=== PATIENT | male | born 1965 | race Caucasian/White ===

== ENCOUNTER 2018-03-06 19:14 | Inpatient (IN) | payer OTHER ==
[~2018-03-06] VITALS: Ht 185.4 cm; Wt 140.4 kg
[2018-03-06 21:15] VITALS: BP 136/81
[2018-03-06] MEDS ORDERED: ALLOPURINOL 30300 M1 PO (22:49)
[2018-03-06] MEDS ORDERED: ASPIR 8181 MG PO (22:50)
[2018-03-06] MEDS ORDERED: ATORVASTATIN CA40 MG PO (22:51)
[2018-03-06] MEDS ORDERED: TUSSIONEX PENN115 ML PO (22:52)
[2018-03-06] MEDS ORDERED: TESSALON PERLE100 MG PO (22:52)
[2018-03-06] MEDS ORDERED: HYDROCHLOROTH12.5 M1 PO (22:53)
[2018-03-06] MEDS ORDERED: PLAVIX 75 MG TA75 M1 PO (22:53)
[2018-03-06] MEDS ORDERED: COZAAR 25 MG TA25 M2 PO (22:54)
[2018-03-06] MEDS ORDERED: GLUCOPHAGE XR500 MG PO (22:55)
[2018-03-06] MEDS ORDERED: PERCOCET 10-321 EACH PO (22:55)
[2018-03-06] MEDS ORDERED: ALFUZOSIN HCL10 MG PO (22:56)
[2018-03-06] MEDS ORDERED: GLYBURIDE 2.52.5 MG PO (22:56)
[2018-03-06] MEDS ORDERED: DEMADEX20 MG PO (22:57)
[2018-03-06] MEDS ORDERED: FISH OIL 1,001000 M2 PO (22:57)
[2018-03-07 00:37] VITALS: BP 136/94
[2018-03-07] MEDS ORDERED: HYDROCHLOROTH12.5 M1 PO (01:40)
[2018-03-07 04:42] LABS: HEMATOCRIT 38.7 % (42.0-52.0); HEMOGLOBIN 12.8 gm/dL (14.0-18.0); MCH 28.5 pg (26.0-34.0); MCV 86.4 fL (80.0-100.0); RBC 4.48 mil/uL (4.50-6.00); RDW 15.2 % (10.5-14.5); WBC 8.1 thou/uL (4.0-11.0)
[2018-03-07 04:44] LABS: ALBUMIN 3.1 g/dL (3.4-5.0); CALCIUM 9.2 mg/dL (8.5-10.1); CREATININE 1.3 mg/dL (0.7-1.3); POTASSIUM 3.7 mmol/L (3.5-5.1); TOTAL BILIRUBIN 0.4 mg/dL (<0.1-1.0); TOTAL PROTEIN 6.6 g/dL (6.4-8.2)
[2018-03-07 06:30] VITALS: BP 135/89
[2018-03-07 07:42] VITALS: BP 131/91
--- NOTE | 2018-03-07 11:16 | H ---
[facility] [place] [address] HISTORY AND PHYSICAL Name: LINUS RICE Room #: 204-P ADM IN M.R.#: [id number] Admission: 03/06/18 Attend Phys: Kevin Marroquin MD Discharge: Date of : 65 Report #: [id number] THIS REPORT FOR: //name// CC: Kevin Reid DATE OF SERVICE: 03/06/2018 ATTENDING PHYSICIAN: Dr. Marroquin. PRIMARY CARE PHYSICIAN: Dr. Rupert Reid. CHIEF COMPLAINT: Shortness of breath. HISTORY OF PRESENT ILLNESS: The patient is a 52-year-old obese male with a history of dyspnea. He states he has been having increasing shortness of breath for over a month now. Initially, he had a nonproductive cough intermittently and was treated with a Z-SARI. He had been feeling weak and run down and it was felt that he likely had a viral illness at that time. He has been in the ER multiple times at [facility] over the course of the last month because of persistent symptoms. 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 He does have a cough, which is mostly nonproductive, but worse whenever he lies down, so he has been having difficulty sleeping. He was recently diagnosed with sleep apnea and started on a CPAP machine, but he continues to have persistent dyspnea. At one point when he was seen at the ER at [place], he had a CT angio of the chest, which was done that did not show any PE. At that time, on the , he was given doxycycline and prednisone and a prescription for an inhaler, which he did not fill. He went back to [facility] on the evening of the with fevers up to 101. He was tachycardic and had a slightly elevated lactate level, so he was admitted there and started on Rocephin and Zithromax. He reported there that he had a cardiac stent placed last summer at [facility] after complaints of the similar dyspnea. He apparently had a 90% blockage, he says, in "main artery." Prior to that catheterization last summer, he had a normal stress test and echocardiogram and when he was unable to perform pulmonary function testing because of this dyspnea, he was sent back to Cardiology for a catheterization. He denies any associated chest pain. He denies any underlying lung disease. He does not have a nebulizer at home. Post-cath, he has had a followup with Dr. Yun with Cardiology. He had a stress test again 3-4 months ago that was negative. He was transferred from [place] due to concern for possible cardiac disease, causing his dyspnea. He apparently had an echocardiogram done there, which results are not available. He does report some recent lower extremity edema, but he has not been taking his torsemide on a regular basis. He denies any previous echos showing any congestive heart failure. He is currently resting comfortably, in no acute distress. [address] [address] HISTORY AND PHYSICAL Name: LINUS RICE Room #: 204-P [facility] IN M.R.#: [id number] Admission: 03/06/18 Attend Phys: Kevin Marroquin MD Discharge: Date of : 65 Report #: [id number] PAST MEDICAL HISTORY: Hypertension, renal cancer, nephrolithiasis, gout, hyperlipidemia, hypertension, diabetes, PE, obstructive sleep apnea, GERD, morbid obesity, coronary artery disease, peripheral neuropathy, depression. PAST SURGICAL HISTORY: Coronary stent x 1, hernia repair, partial nephrectomy. ALLERGIES: No known drug allergies. HOME MEDICATIONS: Alfuzosin 10 mg p.o. daily, Plavix 75 mg p.o. daily, atorvastatin 40 mg p.o. at bedtime, fish oil 1000 mg p.o. b.i.d., losartan 50 mg p.o. daily, aspirin 81 mg p.o. daily, Percocet 10/325 one tab p.o. t.i.d. p.r.n., torsemide 40 mg p.o. daily but he has not been taking this regularly, hydrochlorothiazide 12.5 mg daily, benzonatate 100 mg q.8 hours p.r.n., Tussionex 5 mg b.i.d. p.r.n., metformin 1000 mg p.o. b.i.d., allopurinol 300 mg p.o. daily. SOCIAL HISTORY: The patient is a never smoker, but he does chew tobacco daily. He denies any alcohol use other than an occasional beer. Denies any drug use. 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 FAMILY HISTORY: His mother had brain and lung cancer as well as emphysema. His father had heart disease, diabetes and some sort of heart valve problem. REVIEW OF SYSTEMS: The patient does have a known hydrocele which is due to be repaired by Dr. Rodarte with Urology. He has been placed on Keflex and Alfuzosin for treatment of the hydrocele recently. All other review of systems was reviewed with the patient, otherwise negative unless stated in the HPI. PHYSICAL EXAMINATION: GENERAL: The patient is an alert, obese male, in no acute distress. VITAL SIGNS: Temperature is 36.7, heart rate 96, respirations 18, blood pressure 136/81, oxygen 97% on room air. HEENT: PERRLA. Sclerae nonicteric. Oral mucosa is pink and moist. NECK: Supple, no JVD noted. CARDIAC: Normal S1, S2. No murmurs, rubs or gallops. RESPIRATORY: Breath sounds are clear bilaterally. He is diminished in both bases. Breathing is nonlabored. ABDOMEN: Obese, soft, nontender, nondistended with positive bowel sounds. VASCULAR: 1+ bilateral lower extremity edema, pedal pulses are 2+. No calf tenderness. NEUROLOGIC: The patient is alert and oriented x 3. Speech is clear. He is moving all extremities equally. No focal weakness noted. No facial asymmetry. Gait is steady without ataxia. SKIN: Intact. No rashes or lesions. [address] [address] HISTORY AND PHYSICAL Name: LINUS RICE Room #: 204-P ADM IN M.R.#: [id number] Admission: 03/06/18 Attend Phys: Kevin Marroquin MD Discharge: Date of : 65 Report #: [id number] LABORATORY DATA AND DIAGNOSTICS: Blood work done at [facility] on the evening of 03/04/2018 showed WBC of 8.7, hemoglobin 12.7, platelets 209. Sodium 140, potassium is 3.6, BUN 12, creatinine 1.3, glucose 225. LFTs within normal limits. BNP 25. Influenza A and B are negative. Chest x-ray was negative. ASSESSMENT AND PLAN: 1. Persistent dyspnea. Etiology for this is not clear. He has had recent cardiac stent as well as stress test and echocardiogram. The echo results done at [place] yesterday are not available. We will request those records. His troponin and EKG are negative for any ischemic changes. He apparently was unable to perform pulmonary function test and denies any history of chronic obstructive pulmonary disease. We will consult Cardiology for any further testing with a cardiac catheterization. Continue antibiotics for recent possible bacterial bronchitis. Continue breathing treatments. The patient states that his dyspnea is significantly worse when he lies flat. He may be having some silent reflux and if this is felt to be noncardiac, we may need to have GI evaluate with an EGD. We will add PPI. 2. History of coronary artery disease with recent stent. He is denying any chest pain and troponin is negative. We will request recent records from [facility] and consult Cardiology. Continue with Plavix. 3. Hypertension. Blood pressure is stable, continue home meds and monitor. 4. Diabetes type 2. The patient reports recent hemoglobin A1c of 7.1. He is on metformin, which we will hold for possible catheterization. Continue glyburide and add sliding scale insulin and follow Accu-Cheks. 5. History of pulmonary embolism. The patient is currently off anticoagulation for pulmonary embolism. Apparently recent CT angio of the chest this month was negative. 6. Obstructive sleep apnea. Continue with CPAP at bedtime. 7. Recent bronchitis. Continue with IV antibiotics for now. We will try to obtain a sputum culture and viral respiratory panel. Influenza was negative. Continue with Tussionex and Mucinex. 8. Obesity. 9. Deep venous thrombosis prophylaxis. Start Lovenox. We will continue to follow the patient closely throughout the hospitalization and make changes based on clinical status. <ELECTRONICALLY SIGNED> By: ROBERTO Landrum 03/07/18 1116 0705 0811 ROBERTO Landrum /nt
[2018-03-07 12:12] VITALS: BP 142/92
[2018-03-07 16:04] VITALS: BP 160/96
--- NOTE | 2018-03-07 17:03 | 2DMMODE ---
[facility] [address] [place] [address] 2 D/M-MODE ECHOCARDIOGRAM Name: LINUS RICE Room #: 204-P ADM IN M.R.#: [id number] Admission: 03/06/18 Attend Phys: Kevin Marroquin, Discharge: Date of : 65 Date of Service: 03/07/18 1703 Report #: [id number] THIS REPORT FOR: //name// APPROVED REPORT Study performed: 03/07/2018 13:41:42 EXAM: Limited 2D, Doppler, and color-flow Echocardiogram with contrast Patient Location: Echo lab Room #: 204 Status: routine BSA: 2.62 HR: 93 bpm BP: 142/92 mmHg Rhythm: NSR Indications Limited echo for shortness of breath. Hx: CAD, stent, HTN, HLP, DM, morbid obesity. (Complete echo done at different location recently) Echo Enhancing Agent Indication: Endocardial border delineation Agent(s) / Amount(s) Used: Optison 6 cc 2D Dimensions RVDd: 36.41 mm IVSd: 12.20 (7-11mm) LVDd: 42.87 mm PWd: 12.42 (7-11mm) Ascending Ao: 37.05 (22-36mm) LVDs: 32.05 (25-40mm) Aortic Root: 41.06 mm Volumes Left Atrial Volume (Systole) Single Plane 4CH: 30.29 mL Single Plane 2CH: 38.98 mL LA ESV Index: 14.00 mL/m2 Aortic Valve AoV Peak Delfin.: 1.18 m/s AO Peak Gr.: 5.57 mmHg LVOT Max P.69 mmHg LVOT Max V: 0.96 m/s Mitral Valve E/A Ratio: 0.9 MV Decel. Time: 137.41 ms [facility] [place] [address] 2 D/M-MODE ECHOCARDIOGRAM Name: LINUS RICE Room #: 204-P [facility] IN M.R.#: [id number] Admission: 03/06/18 Attend Phys: Kevin Marroquin, Discharge: Date of : 65 Date of Service: 03/07/18 1703 Report #: [id number] E Max Delfin.: 0.46 m/s MV A Delfin.: 0.51 m/s MV PHT: 39.85 ms Tricuspid Valve TR Peak Delfin.: 2.13 m/s TR Peak Gr.: 18.10 mmHg Left Ventricle The left ventricle is normal size. Mild concentric left ventricular hypertrophy. Left ventricular systolic function is normal. LVEF is 50-55%. Mild diastolic dysfunction is present (impaired relaxation pattern). Right Ventricle The right ventricle is normal size. The right ventricular systolic function is normal. Atria The left atrium size is normal. The right atrium size is normal. Aortic Valve The aortic valve is normal in structure. No aortic regurgitation is present. There is no aortic valvular stenosis. Mitral Valve The mitral valve is normal in structure. Trace mitral regurgitation. No evidence of mitral valve stenosis. Tricuspid Valve The tricuspid valve is normal in structure. Trace tricuspid regurgitation. Estimated PAP is 25mmhg Great Vessels Aortic root is mildly dilated at 4.1cm. The ascending aorta is normal in size. IVC is not well visualized. Pericardium There is no pericardial effusion. <Conclusion> [facility] [address] [place] [address] 2 D/M-MODE ECHOCARDIOGRAM Name: LINUS RICE Room #: 204-P ADM IN M.R.#: [id number] Admission: 03/06/18 Attend Phys: Kevin Marroquin, Discharge: Date of : 65 Date of Service: 03/07/181702 Report #: [id number] The left ventricle is normal size. LVEF is 50-55%. Mild diastolic dysfunction is present (impaired relaxation pattern). The left atrium size is normal. The aortic valve is normal in structure. There is no aortic valvular stenosis. Trace mitral regurgitation. Trace tricuspid regurgitation. Estimated PAP is 25mmhg Aortic root is mildly dilated at 4.1cm. There is no pericardial effusion. <ELECTRONICALLY SIGNED> By: Jose Yun MD, [facility] 03/07/181702 02 02 Jose Yun MD, FACC /INF
[2018-03-07 17:12] LABS: GLYCOHEMOGLOBIN (HGB A1C) 7.4 % (4.8-5.6)
[2018-03-07 19:24] VITALS: BP 146/82
[2018-03-08 04:49] VITALS: BP 141/74
[2018-03-08] MEDS ORDERED: CARVEDILOL3.125 MG PO (05:06)
[2018-03-08] MEDS ORDERED: LASIX 20 MG TAB20 MG PO (05:08)
[2018-03-08] MEDS ORDERED: NEURONTIN 300300 M1 PO (05:09)
[2018-03-08] MEDS ORDERED: AMARYL2 MG PO (05:11)
[2018-03-08] MEDS ORDERED: XALATAN2.5 ML OPHTHALMIC (05:12)
[2018-03-08] MEDS ORDERED: NIACIN500 MG PO (05:14)
[2018-03-08] MEDS ORDERED: OMEPRAZOLE 20 M20 M1 PO (05:19)
[2018-03-08] MEDS ORDERED: [UNRECOGNIZED DRUG - OTHER] (05:20)
[2018-03-08] MEDS ORDERED: PRADAXA150 MG PO (05:21)
[2018-03-08] MEDS ORDERED: ALTACE10 MG PO (05:22)
[2018-03-08] MEDS ORDERED: ZOCOR20 MG PO (05:22)
[2018-03-08] MEDS ORDERED: TOPAMAX 100 MG100 MG PO (05:24)
[2018-03-08 08:00] VITALS: BP 130/88
[2018-03-08 08:20] VITALS: BP 130/88
--- NOTE | 2018-03-08 08:34 | EKG ---
[address] [address] ELECTROCARDIOGRAM REPORT Name: LINUS RICE Room #: 204-P ADM IN M.R.#: [id number] Admission: 03/06/18 Attend Phys: Kevin Marroquin MD Discharge: Date of : 65 Report #: [id number] THIS REPORT FOR: //name// [facility] Test Date: 2018-03-08 Test Time: 06:54:33 Pat Name: LINUS RICE Department: Room: 204 P Gender: M Light Bulb Tester: KENJI : 1965 Requested By: Sallie Peterson Order Number: [id number] MD: Domingo Gibson Measurements Intervals [place] Rate: 97 P: 44 UT: 167 QRS: 51 QRSD: 101 T: 20 QT: 357 QTc: 454 Interpretive Statements Sinus rhythm Normal tracing No previous ECG available for comparison Electronically Signed On 03-08-2018 8:34:49 PROCESS DESIGN CHEMICAL ENGINEER by Domingo Gibson [email or web address] <ELECTRONICALLY SIGNED> By: Domingo Gibson MD, [facility] 03/08/18 0834 0654 0654 Domingo Gibson MD, FACC /EPI
[2018-03-08 11:45] VITALS: BP 148/87
[2018-03-08 11:47] VITALS: BP 148/87
[2018-03-08] MEDS ORDERED: CLOPIDOGREL75 MG PO (12:56)
[2018-03-08] MEDS ORDERED: ASPIR 8181 MG PO (12:56)
[2018-03-08] MEDS ORDERED: COZAAR 25 MG TA25 MG PO (12:58)
[2018-03-08] MEDS ORDERED: HYDROCHLOROTH12.5 M1 PO (13:01)
[2018-03-08] MEDS ORDERED: BENZONATATE100 MG PO (13:01)
[2018-03-08] MEDS ORDERED: DEMADEX20 MG PO (13:02)
[2018-03-08 13:58] VITALS: BP 148/87
[2018-03-10 06:07] LABS: ADENOVIRUS Negative (Negative); INFLUENZA A Negative (Negative); INFLUENZA B Negative (Negative); METAPNEUMOVIRUS Negative (Negative); PARAINFLUENZA 1 Negative (Negative); PARAINFLUENZA 2 Negative (Negative); PARAINFLUENZA 3 Negative (Negative); RHINOVIRUS Negative (Negative); RSV A Negative (Negative); RSV B Negative (Negative)
--- NOTE | 2018-03-13 07:59 | HC ---
[facility] [place] [address] [address] CONSULTATION Name: LINUS RICE Room #: 204-P [facility] IN M.R.#: [id number] Admission: 03/06/18 Attend Phys: Kevin Marroquin MD Discharge: 03/08/18 Date of : 65 Report #: [id number] THIS REPORT FOR: //name// CC: Kevin Reid HISTORY OF PRESENT ILLNESS: The patient is a 52-year-old male who is known to me. Has history of stable coronary artery disease, was admitted with possible sepsis syndrome on Tuesday at [facility]. Fisher to be bronchitis related. His BNP was not elevated. He had stopped his Lasix for the last week because of a hydrocele and had difficulty urinating because of the hydrocele, so I elected to stop his diuretic. He had coronary intervention in 07/2017 to a ramus branch lesion that was stented and then a 70% circumflex OM that had a negative FFR, 30% LAD. Had a negative stress echo in my office in November, 3 months ago. He has had no chest pain or anginal complaints. He has hypertriglyceridemia and we have been working on getting that down. MEDICATIONS: He has been on allopurinol, baby aspirin, atorvastatin 40, Plavix, losartan/HCTZ 100/25, metformin 1000 b.i.d., torsemide 20 and Vascepa 2 grams b.i.d. PAST MEDICAL HISTORY: Positive for coronary artery disease with stents, diabetes, hypertension, hypercholesterolemia, sleep apnea, hydrocele, DJD. FAMILY HISTORY: Positive coronary artery disease, I also see his father with documented CAD. SOCIAL HISTORY: Never-tobacco or alcohol user. He does work. He is independent. Six cups of coffee a day. ALLERGIES: No known drug allergies. PHYSICAL EXAMINATION: VITAL SIGNS: Blood pressure 130/90, pulse 80s. HEENT: Eyes reveal xanthelasmas. Pharynx is clear. NECK: Shows preserved upstrokes without JVD or bruits. LUNGS: Clear. A few crackles are noted in the right base. CARDIAC: Regular rate and rhythm, S1, S2 distant. ABDOMEN: Obese, nontender. EXTREMITIES: Reveal 1-2+ edema. Distal pulses diminished, but intact. NEUROLOGIC: Nonfocal. SKIN: Warm and dry. There are mild venous stasis changes. ASSESSMENT: 1. Resolving sepsis syndrome/bronchitis. 2. Mild volume overload, suspect component of diastolic dysfunction and noncompliance with diuretic. [facility] [address] [place] [address] CONSULTATION Name: LINUS RICE Room #: 204-P DIS IN M.R.#: [id number] Admission: 03/06/18 Attend Phys: Kevin Marroquin MD Discharge: 03/08/18 Date of : 65 Report #: [id number] 3. Coronary artery disease, stable. 4. Diabetes. 5. Hypertension. 6. Hypertriglyceridemia. RECOMMENDATIONS AND PLAN: We will utilize diuretic, repeat a chest x-ray. Continue with antibiotics, although it is not clear to me the source of this potential sepsis infection. He is hemodynamically stable and certainly not presenting as septic syndrome at this point. I believe his cardiac status to be stable. I do not recommend stress testing or intervention at this time. I will obtain echo Doppler and repeat the EKG. We will follow with you. Thank you for asking me to assist in the care of this patient. <ELECTRONICALLY SIGNED> By: Jose Yun MD, FACC 03/13/18 0759 0951 1046 Jose Yun MD, FACC /nt
== END 2018-03-08 15:24 | disposition home or self-care (01) | DRG 871 ==
LOC: 2N 19:14 → ENTRNSPT 03-08 15:01 → EDTRNSPTSTS 03-08 15:05 → 2N 03-08 15:24
PROVIDERS: Nurse Practitioner Acute Care; ADMIT Internal Medicine
DX: A41.9 Sepsis, unspecified organism (principal); I50.31 Acute diastolic (congestive) heart failure; Z68.41 Body mass index [BMI] 40.0-44.9, adult; I25.10 Atherosclerotic heart disease of native coronary artery without angina pectoris; E78.1 Pure hyperglyceridemia; K21.9 Gastro-esophageal reflux disease without esophagitis; M19.90 Unspecified osteoarthritis, unspecified site; E78.5 Hyperlipidemia, unspecified; J40 Bronchitis, not specified as acute or chronic; M10.9 Gout, unspecified; I10 Essential (primary) hypertension; I08.1 Rheumatic disorders of both mitral and tricuspid valves; F17.220 Nicotine dependence, chewing tobacco, uncomplicated; E66.9 Obesity, unspecified; G47.33 Obstructive sleep apnea (adult) (pediatric); E11.9 Type 2 diabetes mellitus without complications; Z95.5 Presence of coronary angioplasty implant and graft; Z79.82 Long term (current) use of aspirin; Z82.49 Family history of ischemic heart disease and other diseases of the circulatory system; Z79.84 Long term (current) use of oral hypoglycemic drugs; Z86.711 Personal history of pulmonary embolism; Z87.442 Personal history of urinary calculi
CPT/HCPCS: 10081

== ENCOUNTER 2018-05-21 16:24 | Inpatient (IN) | payer OTHER ==
[~2018-05-21] VITALS: Ht 185.4 cm; Wt 144.2 kg
[~2018-05-21 16:24] MED LIST: ALFUZOSIN HCL10 MG PO; ALLOPURINOL 30300 M1 PO; ALTACE10 MG PO; AMARYL2 MG PO; ASPIR 8181 MG PO; ATORVASTATIN CA40 MG PO; BENZONATATE100 MG PO; CARVEDILOL3.125 MG PO; CLOPIDOGREL75 MG PO; COZAAR 25 MG TA25 M2 PO; COZAAR 25 MG TA25 MG PO; DEMADEX20 MG PO; FISH OIL 1,001000 M2 PO; GLUCOPHAGE XR500 MG PO; GLYBURIDE 2.52.5 MG PO; HYDROCHLOROTH12.5 M1 PO; LASIX 20 MG TAB20 MG PO; NEURONTIN 300300 M1 PO; NIACIN500 MG PO; OMEPRAZOLE 20 M20 M1 PO; PERCOCET 10-321 EACH PO; PLAVIX 75 MG TA75 M1 PO; PRADAXA150 MG PO; TESSALON PERLE100 MG PO; TOPAMAX 100 MG100 MG PO; TUSSIONEX PENN115 ML PO; XALATAN2.5 ML OPHTHALMIC; ZOCOR20 MG PO; [UNRECOGNIZED DRUG - OTHER]
[2018-05-21 16:30] VITALS: BP 119/85
[2018-05-21 16:54] LABS: URINE BILIRUBIN NEGATIVE (Negative); URINE BLOOD 3+ (Negative); URINE CLARITY CLEAR; URINE COLOR YELLOW; URINE GLUCOSE-RANDOM* NEGATIVE (Negative); URINE KETONES NEGATIVE (Negative); URINE LEUKOCYTES-REFLEX TRACE (Negative); URINE NITRITE-REFLEX NEGATIVE (Negative); URINE PROTEIN (DIPSTICK) 1+ (Negative); URINE UROBILINOGEN 0.2 E.U./dl (0.2-1.0)
[2018-05-21 16:58] LABS: SQUAMOUS 4-10 Moderate /LPF (0-3)
[2018-05-21 16:59] LABS: CASTS None Seen /LPF (None Seen); MUCUS 0-3 Light strn/LPF (None Seen); URINE WBC-REFLEX 6-15 Few /HPF (0-5)
[2018-05-21 17:00] LABS: BACTERIA-REFLEX None Seen /HPF (None Seen); CRYSTALS None Seen /LPF (None Seen)
--- NOTE | 2018-05-21 17:36 | NUR ---
LAB AT BEDSIDE TO COLLECT SPECIMENS; PT REFUSED UNTIL PROVIDER FINISHES AT PTS BEDSIDE; THREE DIMENSIONAL MAP MODELER WILL COLLECT OTHER SPECIMENS AND RETURN SOON SHE IS ABLE;
--- NOTE | 2018-05-21 17:43 | NUR ---
LAB IN ROUTE TO COLLECT SPECIMENS PER ORDERS
[2018-05-21 18:22] LABS: ABSOLUTE NEUTROPHILS 9.9 thou/uL (1.4-8.2); BASOPHILS 0.9 % (0.0-2.0); HEMATOCRIT 37.3 % (42.0-52.0); HEMOGLOBIN 12.5 gm/dL (14.0-18.0); LYMPHOCYTES 18.4 % (24.0-44.0); MCHC 33.5 g/dL (28.0-37.0); MCV 83.6 fL (80.0-100.0); MONOCYTES 8.7 % (1.0-8.0); PLATELET COUNT 276 thou/uL (150-400); RBC 4.47 mil/uL (4.50-6.00); RDW 14.7 % (10.5-14.5); WBC 13.9 thou/uL (4.0-11.0)
[2018-05-21 18:33] LABS: CALCIUM 8.7 mg/dL (8.5-10.1); POTASSIUM 3.5 mmol/L (3.5-5.1)
[2018-05-21 18:39] LABS: ALBUMIN 3.3 g/dL (3.4-5.0); TOTAL BILIRUBIN 0.4 mg/dL (<0.1-1.0); TOTAL PROTEIN 6.5 g/dL (6.4-8.2)
[2018-05-21 20:18] VITALS: BP 136/72
[2018-05-21 20:35] VITALS: BP 155/92
[2018-05-21] MEDS ORDERED: VASCEPA1 GM PO (21:12)
[2018-05-21] MEDS ORDERED: KEFLEX500 M1 PO (22:29)
[2018-05-21] MEDS ORDERED: ALFUZOSIN HCL10 MG PO (22:35)
--- NOTE | 2018-05-21 23:00 | NUR ---
Patient states he uses home CPAP without oxygen bled in, refused nasal annula offered or CPAP ordered.
[2018-05-21 23:21] VITALS: BP 141/86
--- NOTE | 2018-05-22 00:05 | EKG ---
[address] [place] [address] ELECTROCARDIOGRAM REPORT Name: LINUS RICE Room #: 364-P ADM IN M.R.#: [id number] ������������������ Admission: 05/21/18 ������������������ Attend Phys: Daren Youssef MD Discharge: ������������������ Date of : 65 Report #: [id number] ����������������������������������������������������������������� [id number] THIS REPORT FOR: //name// [facility] ED Test Date: 2018-05-21 Test Time: 18:00:56 Pat Name: LINUS RICE Department: Room: 364 Gender: M Choreography Director: : 1965 Requested By: Ana Vargas Order Number: [id number] MD: Darío Munson Measurements Intervals [place] Rate: 105 P: 39 IN: 168 QRS: 29 QRSD: 103 T: 29 QT: 352 QTc: 466 Interpretive Statements Sinus tachycardia baseline wander poor R wave progression Compared to ECG 03/08/2018 06:54:33 no significant changes Electronically Signed On 05-22-2018 0:04:55 CDT by Darío Munson [email or web address] ��������������������������������������������� <ELECTRONICALLY SIGNED> ���������������������������������������� By: Darío Munson MD ��������������������������������������������� 05/22/18 0004 [facility] Darío Munson MD /EPI
--- NOTE | 2018-05-22 02:28 | NUR ---
Admission history and assessments completed. Careplan initiated. IVfluids and IV antibiotics started.
[2018-05-22 05:08] VITALS: BP 129/85
[2018-05-22 05:33] LABS: HEMATOCRIT 37.1 % (42.0-52.0); HEMOGLOBIN 12.1 gm/dL (14.0-18.0); MCH 27.6 pg (26.0-34.0); MCHC 32.7 g/dL (28.0-37.0); MCV 84.5 fL (80.0-100.0); RBC 4.39 mil/uL (4.50-6.00); RDW 14.5 % (10.5-14.5); WBC 11.4 thou/uL (4.0-11.0)
[2018-05-22 05:44] LABS: CALCIUM 7.9 mg/dL (8.5-10.1); CREATININE 1.2 mg/dL (0.7-1.3); POTASSIUM 3.8 mmol/L (3.5-5.1)
[2018-05-22 07:55] VITALS: BP 149/95
--- NOTE | 2018-05-22 14:41 | NUR ---
PT IS ALERT AND ORIENTED X4. UP IN THE ROOM AD OBDULIA. LUNGS. PT HERE FOR TEMP AND UTI. NO TEMPERATURE THIS AM. OR CHILLS. LUNGS ARE CLEAR TO DIMINISHED. ON ROOM AIR. PLAN OF CARE DISCUSSED WITH PT . PT RECIEVING ANTIBIOTICS FOR INFECTION. EATING A CARB CONTROL DIET. REFUSES BLOOD SUGARDS. AND APPEARS NON COMPLIANT WITH DIABETES. WILL CONTINUE TO ASSESS AND MONITOR PER NURSING. VOIDS PER URINAL. CLEAR YELLOW
[2018-05-22 16:52] VITALS: BP 151/91
[2018-05-22 20:50] VITALS: BP 180/100
--- NOTE | 2018-05-22 21:36 | NUR ---
REFUSES EVENING BLOOD GLUCOSE CHECK. HOWEVER, HE IS QUITE CONCERNED WITH HIS BLOOD PRESSURE TONIGHT AFTER EATING A LARGE PORTION OF FASY FOOD ( FIVE GUYS).
[2018-05-22 23:56] VITALS: BP 152/93
[2018-05-23 00:09] LABS: GLYCOHEMOGLOBIN (HGB A1C) 7.2 % (4.8-5.6)
--- NOTE | 2018-05-23 00:25 | NUR ---
COMPLAINING OF ALLERGY LIKE SYMPTOMS, WHICH INCLUDES DRY COUGH AND HEADACHE. RECIEVED ORDER FOR CATALINO PAGE. FOR COUGH AND ALLERGY SYMPTOMS.
--- NOTE | 2018-05-23 02:19 | NUR ---
AWAKE TONIGHT, VERY TLAKATIVE. COMPLAINS OF COUGHING GAVE THE ORDERED DIPHENHRYDRAMINE. REFUSES TO HAVE BLOOD GLUCOSE CHECKED TONIGHT. HE DOES NOT HAVE HIS HOME CPAP WITH HIM, AND WOULD PERFER TO NOT WEAR OXYGEN TONIGHT A SUBSTITUTE. CAREPLAN REVIEWED.
[2018-05-23 05:00] VITALS: BP 144/90
[2018-05-23 07:46] VITALS: BP 144/95
--- NOTE | 2018-05-23 08:44 | NUR ---
assessment: CM REVIEWED CHART AND MET WITH PATIENT AT THE BEDSIDE. PT IS ALERT AND ORIENTED X4. PT WAS ADMITTED FOR FEVER/UTI. PT HAD RECENTLY ALSO HAD A CYST REMOVED FROM [facility] 04/07. PT REPORTS HE LIVES IN A HOUSE WITH HIS AND HIS DAUGHTER. PT REPORTS HE IS FULLY INDEPENDENT WITH ADLS AND AMBULATION. PT REPORTS HE HAD HH YEARS AGO BUT STATES HE IS NOT IN SERVICES CURRENTLY. PT REPORTS HAVING A CPAP AT HOME. CM DISCUSSED ROLE. PT DOES NOT ANTICIPATE HAVING ANY NEEDS FROM CM AND IS HOPEFUL HE WILL BE ABLE TO GO HOME TODAY.
[2018-05-23] MEDS ORDERED: AUGMENTIN 875-1 EACH PO (09:22)
[2018-05-23 09:30] VITALS: BP 144/95
--- NOTE | 2018-05-23 13:32 | NUR ---
PT ALERT AND ORIENTED TIMES FOUR. VSS, 985%RA, SR ON TELE. IVF INFUSING PER ORDER. PT DENIES PAIN/SOA. PT TOLERATES MEDS AND MEALS. PT UP AB IB WITH STEADY GAIT. PT PROGRESSING TOWRADS POC GOALS.
== END 2018-05-23 11:47 | disposition home or self-care (01) | DRG 690 ==
LOC: ER 16:24 → 3W 19:34 → EROBS 19:34 → 3W 20:20 → ENTRNSPT 05-23 11:28 → EDTRNSPTSTS 05-23 11:31 → 3W 05-23 11:47
PROVIDERS: Nurse Practitioner Family; Physician Assistant; ADMIT Hospitalist
DX: N39.0 Urinary tract infection, site not specified (principal); I50.30 Unspecified diastolic (congestive) heart failure; Z68.41 Body mass index [BMI] 40.0-44.9, adult; E11.9 Type 2 diabetes mellitus without complications; M10.9 Gout, unspecified; E78.5 Hyperlipidemia, unspecified; G47.33 Obstructive sleep apnea (adult) (pediatric); K21.9 Gastro-esophageal reflux disease without esophagitis; I11.0 Hypertensive heart disease with heart failure; I25.10 Atherosclerotic heart disease of native coronary artery without angina pectoris; E66.9 Obesity, unspecified; Z87.442 Personal history of urinary calculi; Z90.5 Acquired absence of kidney; Z86.711 Personal history of pulmonary embolism; Z88.2 Allergy status to sulfonamides; Z95.5 Presence of coronary angioplasty implant and graft; Z85.528 Personal history of other malignant neoplasm of kidney; Z79.899 Other long term (current) drug therapy
CPT/HCPCS: 10879

== ENCOUNTER → 2019-09-07 | Outpatient (CLI) | payer BC, OTHER ==
[~2019-09-07] MED LIST changes: +AUGMENTIN 875-1 EACH PO; +KEFLEX500 M1 PO; +VASCEPA1 GM PO
== END ==
LOC: SJCVCIMAG 08:24
PROVIDERS: ATTEND Internal Medicine Cardiovascular Disease
DX: Z01.810 Encounter for preprocedural cardiovascular examination (principal); I49.3 Ventricular premature depolarization; I25.10 Atherosclerotic heart disease of native coronary artery without angina pectoris; I10 Essential (primary) hypertension; E78.5 Hyperlipidemia, unspecified; E11.9 Type 2 diabetes mellitus without complications; E66.9 Obesity, unspecified; Z79.82 Long term (current) use of aspirin; Z79.899 Other long term (current) drug therapy; Z98.61 Coronary angioplasty status

== ENCOUNTER 2020-05-25 16:36 | Inpatient (IN) | payer OTHER ==
[~2020-05-25] VITALS: Ht 185.4 cm; Wt 141.5 kg
[2020-05-25 18:43] VITALS: BP 123/78
[2020-05-25 18:45] VITALS: BP 123/78
[2020-05-25] MEDS ORDERED: GLYBURIDE 5 MG T5 M1 GT (19:40)
[2020-05-25] MEDS ORDERED: LOSARTAN-HCTZ1 EAC3 PO (19:41)
[2020-05-25] MEDS ORDERED: METOPROLOL SUCC50 MG PO (19:41)
[2020-05-25] MEDS ORDERED: ALLOPURINOL 30300 M1 PO (19:42)
[2020-05-25] MEDS ORDERED: EZETIMIBE10 MG PO (19:42)
[2020-05-25] MEDS ORDERED: PREGABALIN225 MG PO (19:43)
[2020-05-25] MEDS ORDERED: LIPITOR 40 MG T40 M1 PO (19:44)
[2020-05-25] MEDS ORDERED: SINGULAIR 10 MG10 M1 PO (19:44)
[2020-05-25] MEDS ORDERED: PERCOCET 10-321 EACH PO (19:45)
[2020-05-25] MEDS ORDERED: BUPROPION XL300 MG PO (19:46)
[2020-05-25] MEDS ORDERED: METFORMIN HCL500 M3 PO (19:47)
[2020-05-25] MEDS ORDERED: TESTOSTERO200 MG/1 M IM (19:48)
[2020-05-25] MEDS ORDERED: ALPRAZOLAM 0.50.5 M1 PO (19:49)
--- NOTE | 2020-05-25 20:34 | NUR ---
Pt direct admit from [facility]. arrived to unit during shift change. pt was sitting at the edge of the bed with no complaints or concerns. Pt admission finished with consents signed. Physician aware of pt's arrival. Pt is able to ambulate adlib with steady gait and able to have good intake of water and fluids. No orders currently. PERFORATOR OPERATOR will assess pt later this evenign and place orders. pt is aware. call light in reach. continue with plan of care
[2020-05-25 22:52] LABS: HEMATOCRIT 41.5 % (42.0-52.0); HEMOGLOBIN 13.7 gm/dL (14.0-18.0); MCH 27.2 pg (26.0-34.0); MCV 82.7 fL (80.0-100.0); RBC 5.02 mil/uL (4.50-6.00); RDW 16.5 % (10.5-14.5); WBC 9.2 thou/uL (4.0-11.0)
[2020-05-25 23:07] LABS: INR 0.99; PROTIME 10.8 Seconds (9.3-11.4)
[2020-05-26 04:05] VITALS: BP 129/81
[2020-05-26 06:16] LABS: HEMATOCRIT 42.4 % (42.0-52.0); HEMOGLOBIN 14.3 gm/dL (14.0-18.0); MCH 27.8 pg (26.0-34.0); MCHC 33.7 g/dL (28.0-37.0); MCV 82.6 fL (80.0-100.0); RBC 5.13 mil/uL (4.50-6.00); RDW 16.8 % (10.5-14.5); WBC 9.1 thou/uL (4.0-11.0)
[2020-05-26 06:35] LABS: CREATININE 1.3 mg/dL (0.7-1.3); TOTAL BILIRUBIN 0.6 mg/dL (0.2-1.0); TOTAL PROTEIN 6.4 g/dL (6.4-8.2)
[2020-05-26 06:51] LABS: TROPONIN-I 2.68 ng/mL (<0.06)
[2020-05-26 08:05] VITALS: BP 133/86
--- NOTE | 2020-05-26 14:30 | 2DMMODE ---
[facility] [place] [address] 2 D/M-MODE ECHOCARDIOGRAM Name: LINUS RICE Room #: 209-P ADM IN M.R.#: [id number] Admission: 05/25/20 Attend Phys: Nate Thakur MD Discharge: Date of : 65 Report #: [id number] THIS REPORT FOR: cc: Rupert Reid MD, Samuel D. MD Park, Jin S. MD ~ APPROVED REPORT Study performed: 05/26/2020 13:11:59 EXAM: Comprehensive 2D, Doppler, and color-flow Echocardiogram Patient Location: Bedside Room #: 209 Status: routine BSA: 2.61 HR: 75 bpm BP: 142/92 mmHg Rhythm: NSR Other Information Study Quality: Adequate Technically limited study due to . Indications Diabetes Bradycardia Dyspnea Elevated Troponin Chest Pain Hypertension/HDD 2D Dimensions RVDd: 32.31 mm IVSd: 11.70 (7-11mm) LVOT Diam: 24.36 (18-24mm) LVDd: 56.79 mm PWd: 12.32 (7-11mm) Ascending Ao: 30.85 (22-36mm) LVDs: 31.89 (25-40mm) Left Atrium: 36.00 (27-40mm) Aortic Root: 41.25 mm IVC: 17.00 mm Volumes Left Atrial Volume (Systole) Single Plane 4CH: 67.89 mL Single Plane 2CH: 99.98 mL [facility] [address] [address] 2 D/M-MODE ECHOCARDIOGRAM Name: LINUS RICE Room #: 209-P ADM IN M.R.#: [id number] Admission: 05/25/20 Attend Phys: Nate Thakur MD Discharge: Date of : 65 Report #: [id number] ESV Index: 36.00 mL/m2 Aortic Valve AoV Peak Delfin.: 1.09 m/s AO Peak Gr.: 4.71 mmHg LVOT Max P.17 mmHg LVOT Max V: 0.74 m/s DUONG Vmax: 3.16 cm2 Mitral Valve E/A Ratio: 0.9 MV Decel. Time: 165.19 ms MV E Max Delfin.: 0.61 m/s MV A Delfin.: 0.70 m/s MV PHT: 47.91 ms IVRT: 79.58 ms Pulmonary Valve PV Peak Delfin.: 0.90 m/s PV Peak Gr.: 3.27 mmHg Left Ventricle The left ventricle is normal size. Borderline concentric left ventricular hypertrophy. The left ventricular systolic function is normal. LVEF is 50-55%. Grade I - abnormal relaxation pattern. Right Ventricle The right ventricle is normal size. The right ventricular systolic function is normal. Atria Left atrium is mildly dilated. The right atrium size is normal. Aortic Valve The aortic valve is normal in structure. No aortic regurgitation is present. There is no aortic valvular stenosis. Mitral Valve The mitral valve is normal in structure. Trace mitral regurgitation. No evidence of mitral valve stenosis. Tricuspid Valve The tricuspid valve is normal in structure. There is no tricuspid valve regurgitation noted. Pulmonic Valve The pulmonary valve is normal in structure. There is no pulmonic [facility] [address] [address] 2 D/M-MODE ECHOCARDIOGRAM Name: LINUS RICE Room #: 209-P [facility] IN ..#: [id number] Admission: 05/25/20 Attend Phys: Nate Thakur MD Discharge: Date of : 65 Report #: [id number] valvular regurgitation. Great Vessels The aortic root is normal in size. IVC is normal in size and collapses >50% with inspiration. Pericardium There is no pericardial effusion. <Conclusion> The left ventricle is normal size. The left ventricular systolic function is normal. Grade I - abnormal relaxation pattern. The right ventricle is normal size. Left atrium is mildly dilated. The aortic valve is normal in structure. Trace mitral regurgitation. <ELECTRONICALLY SIGNED> By: Lj Arce MD 05/26/20 1430 1430 1430 Lj Arce MD /INF
--- NOTE | 2020-05-26 15:50 | CATHLAB ---
[facility] [place] [address] INVASIVE PROCEDURE REPORT Name: LINUS RICE Room #: 209-P ADM Renae M.R.#: [id number] Admission: 05/25/20 Attend Phys: Nate Thakur MD Discharge: Date of : 65 Report #: [id number] THIS REPORT FOR: cc: Rupert Reid MD, Samuel D. MD Park, Jin S. MD ~ APPROVED REPORT Study performed: 05/26/2020 08:51:19 Patient Details Patient Status: In-Patient Room #: 209 The patient is a 55 year-old male Event Personnel Lj Arce Rotary Filter Operator, Joey Euceda RTR Monitor, Jagjit Clark RN RN, Katrin Sandhu Scrub, Marivel Willams RT(R)() Payment Rep, Corrie Tian RTR Scrub Procedures Performed Art Access - R femoral artery* 62549 Initial Mod Sed Same Phys/QHP Gr5y 784998 92188 Mod Sed Same Phys/QHP Ea 484094 Left Heart Cath w/or w/o Coronaries 7842255 [facility] ABHI Place w/wo Plasty Single RAMUS Inter 903229 ABHI Place w/wo Plasty Single OM 112209 Indication Non-STEMI , Dyspnea, Chest pain Risk Factors Hypercholesterolemia, Coronary Artery DiseaseHypertension, Diabetes Previous Procedures/Diagnoses Previous PCI Procedure Narrative The Right Groin^ was infiltrated with 1% Lidocaine subcutaneous anesthesia. A PINNACLE 4FR Sheath #[id number] sheath was inserted into the RFA^. Coronary angiography was performed using coronary diagnostic catheters. The right coronary system was accessed and visualized with a 4FR JR4 catheter. The left coronary system was accessed and visualized with a 4FR JL5 catheter. The left ventricle was accessed and visualized with a 4FR PIGTAIL catheter. Left ventricular/Aortic Valve gradient assessed via catheter pullback. [facility] [place] [address] INVASIVE PROCEDURE REPORT Name: LINUS RICE Room #: 209-P [facility] IN M.R.#: [id number] Admission: 05/25/20 Attend Phys: Nate Thakur MD Discharge: Date of : 65 Report #: [id number] Pre-demployment femoral angiogram was performed . Closure device was deployed with a 6 Fr MYNXGRIP 6/7F #[id number]. The patient tolerated the procedure well and there were no complications associated with the procedure. There was no hematoma. Intraoperative Conscious Sedation Sedation start time: 09 Case end Time: 1106 Fentanyl 200 mcg Versed 2 mg Fluoro Time: 12.32 minutes Dose: DAP 39431.10 cGycm2 3373 mGy Contrast Type and Amount: Visipaque 220 ml Coronary Angiography The patient's coronary anatomy is left dominant. Diagnostic Cath Left Main The left main artery is a large-caliber vessel, appears angiographically normal. LAD The LAD is a moderate-sized caliber vessel, traverses the anterior wall and wraps around the apex. There is mild disease in the proximal and mid segments, 20%. Diagonal 1 This is a moderate-sized caliber vessel with mild disease proximally. Circumflex The left circumflex artery is a dominant vessel, appears angiographically normal. OM1 There is a severe occlusion in the proximal segment, 70 to 80%. OM2 There is a small caliber vessel, patent with no flow-limiting lesions. L PDA This is a moderate-sized caliber vessel, with mild disease proximally. Right Coronary This is a small, nondominant vessel. Ramus There is a severe occlusion in the midsegment, 95%. Left Ventriculography Left Ventriculography was not performed. Ejection Fraction was >55% based off patient's Echocardiogram. An LVEDP was measured and there is no gradient across the outflow tract. Hemodynamics The aortic pressure is 133/86 mmHg with a mean of 109 mmHg. The left ventricular pressure is 143/24 mmHg with a mean of mmHg. The left ventricular end diastolic pressure is 35 mmHg. [facility] [address] [place] [address] INVASIVE PROCEDURE REPORT Name: LINUS RICE Room #: 209-P [facility] IN M.R.#: [id number] Admission: 05/25/20 Attend Phys: Nate Thakur MD Discharge: Date of : 65 Report #: [id number] PCI Technique Lesion Percutaneous coronary intervention was performed on the ramus intermedius segment. The lesion stenosis prior to intervention was 99% with KADI 3 flow. A VISTA 6FR XB 3.5 #[id number] Guide Catheter was used to engage the ostium. A Luge Wire .014 x 182CM #[id number] Interventional Guidewire was used to cross the lesion. BALLOON DILATION A Balloon catheter Euphora RX 2.25 x 10 #[id number] was inserted and inflated up to 10.00atm for 15seconds. STENT DEPLOYMENT A drug-eluting stent RESOLUTE JUDSON RX 2.0 X 15 #[id number] was inserted and inflated up to 10.00atm for 21seconds. POST STENT DEPLOYMENT BALLOON DILATION A Balloon catheter Euphora NC RX 2.0 x 12 #[id number] was inserted and inflated up to 14.00atm for 18seconds. Final angiography reveals 0 % stenosis with KADI 3 flow. PCI Technique Lesion 2 Percutaneous Coronary Intervention was performed on the first obtuse marginal branch segment. The lesion stenosis prior to intervention was 75% with KADI 3 flow. A VISTA 6FR XB 3.5 #[id number] Guide Catheter was used to engage the ostium. A Luge Wire .014 x 182CM #[id number] Interventional Guidewire was used to cross the lesion. Stent Deployment A drug-eluting stent RESOLUTE JUDSON RX 2.25 X 15 #[id number] was inserted and inflated up to 14.00atm for 29seconds. Post Stent Deployment Balloon Dilation A Balloon catheter Euphora NC RX 2.5 x 12 #[id number] was inserted and inflated up to 14.00atm for 16seconds. Additional Inflation: 14.00atm for 8seconds. Final angiography reveals 0 % stenosis with KADI 3 flow. Conclusion 1. Successful insertion of a drug-eluting stent into the Ramus artery. 2. Successful insertion of a drug-eluting stent into the first obtuse marginal artery. 3. The LAD has mild disease. [facility] [address] [place] [address] INVASIVE PROCEDURE REPORT Name: LINUS RICE Room #: 209-P ADM IN M.R.#: [id number] Admission: 05/25/20 Attend Phys: Nate Thakur MD Discharge: Date of : 65 Report #: [id number] 4. The left circumflex artery is a dominant vessel. 5. There is normal LV systolic function. 6. Recommend dual antiplatelet therapy and aggressive risk factor management. <ELECTRONICALLY SIGNED> By: Lj Arce MD 05/26/20 1550 1550 1550 Lj Arce MD /INF
[2020-05-26 16:12] VITALS: BP 149/79
--- NOTE | 2020-05-26 16:55 | NUR ---
ASSUMED CARE SHIFT CHANGE. ASSESSMENTS CHARTED.MEDS GIVEN PER APR. VSS, CARDIAC CATH TODAY WITH STENTS. R GROIN SITE REMAINS CDI NO HEMATOMA. PT UP POST BEDREST TOLERATING WELL. DENIES CP/SOB. PLAN FOR POSSIBLE DC TOMORROW. CONTINUING POC. DENIES NEEDS AT THIS TIME. WILL PASS ONTO NOC RN.
[2020-05-26 19:32] VITALS: BP 135/76
[2020-05-27 00:45] VITALS: BP 128/82
[2020-05-27 03:43] VITALS: BP 132/88
[2020-05-27 05:04] LABS: HEMOGLOBIN 13.5 gm/dL (14.0-18.0); MCH 26.6 pg (26.0-34.0); MCV 83.2 fL (80.0-100.0); RBC 5.05 mil/uL (4.50-6.00); RDW 16.7 % (10.5-14.5); WBC 8.7 thou/uL (4.0-11.0)
[2020-05-27 05:33] LABS: CALCIUM 8.1 mg/dL (8.5-10.1); CREATININE 1.1 mg/dL (0.7-1.3); POTASSIUM 3.6 mmol/L (3.5-5.1); TOTAL BILIRUBIN 0.6 mg/dL (0.2-1.0); TOTAL PROTEIN 6.3 g/dL (6.4-8.2)
[2020-05-27 07:37] VITALS: BP 143/81
[2020-05-27] MEDS ORDERED: EFFIENT10 MG PO (08:30)
--- NOTE | 2020-05-27 08:48 | NUR ---
ASSUMED CARE AT 1900. PT C/O PAIN IN RIGHT GROIN AND CHRONIC BACK PAIN. OBTAINED ORDER FOR HOME PAIN MED REGIMEN. MINIMAL PAIN CONTROL, OBTAINED ORDER FOR ONE TIME DOSE OF DILAUDID WHICH GOT PT'S PAIN UNDER CONTROL OVERNIGHT. NO HEMATOMA AT GROIN SITE, DRESSING C/D/I. NO OTHER CONCERNS, SHIFT REPORT GIVEN 0700.
--- NOTE | 2020-05-27 09:32 | EKG ---
[address] [address] ELECTROCARDIOGRAM REPORT Name: LINUS RICE Room #: 209-P ADM IN M.R.#: [id number] Admission: 05/25/20 Attend Phys: Syeda Christie MD Discharge: Date of : 65 Report #: [id number] [facility] Test Date: 2020-05-26 Test Time: 15:33:52 Pat Name: LINUS RICE Department: Room: 209 P Gender: M Pot Maker: FSCHWALBE : 1965 Requested By: Lj Arce Order Number: [id number] MD: Domingo Gibson Measurements Intervals [place] Rate: 70 P: 40 DE: 181 QRS: 29 QRSD: 109 T: 51 QT: 394 QTc: 426 Interpretive Statements Sinus arrhythmia Normal tracing Compared to ECG 05/21/2018 18:00:56 Sinus tachycardia no longer present Electronically Signed On 05-27-2020 9:32:01 CDT by Domingo Gibson [email or web address] <ELECTRONICALLY SIGNED> By: Domingo Gibson MD, [facility] 05/27/20 0932 1533 1533 Domingo Gibson MD, FACC /EPI
--- NOTE | 2020-05-27 09:41 | EKG ---
[address] [place] [address] ELECTROCARDIOGRAM REPORT Name: LINUS RICE Room #: 209-P ADM IN M.R.#: [id number] Admission: 05/25/20 Attend Phys: Syeda Christie MD Discharge: Date of : 65 Report #: [id number] [facility] Test Date: 2020-05-27 Test Time: 07:45:21 Pat Name: LINUS RICE Department: Room: 209 P Gender: M Nuclear Instructor: DYLAN : 1965 Requested By: Lj Arce Order Number: [id number] MD: Domingo Gibson Measurements Intervals [place] Rate: 79 P: 43 IN: 182 QRS: 40 QRSD: 107 T: 34 QT: 380 QTc: 436 Interpretive Statements Sinus rhythm Normal tracing Compared to ECG 05/26/2020 15:33:52 no significant change was found Electronically Signed On 05-27-2020 9:41:36 CDT by Domingo Gibson [email or web address] <ELECTRONICALLY SIGNED> By: Domingo Gibson MD, [facility] 05/27/20 0941 0745 0745 Domingo Gibson MD, FACC /EPI
[2020-05-27 10:55] VITALS: BP 123/73
[2020-05-27 12:20] VITALS: BP 123/73
--- NOTE | 2020-05-27 16:21 | NUR ---
patient discharged at 1610 with sheet rock sander staff in wheelchair. patient left with all belongings and picked him up from hosptial. discharge instructions were given.
== END 2020-05-27 16:20 | disposition home or self-care (01) | DRG 246 ==
LOC: 2N 16:36
PROVIDERS: Internal Medicine Cardiovascular Disease; Nurse Practitioner; ADMIT Hospitalist; ATTEND Hospitalist
DX: I21.4 Non-ST elevation (NSTEMI) myocardial infarction (principal); I50.31 Acute diastolic (congestive) heart failure; Z68.41 Body mass index [BMI] 40.0-44.9, adult; E44.1 Mild protein-calorie malnutrition; I25.10 Atherosclerotic heart disease of native coronary artery without angina pectoris; I11.0 Hypertensive heart disease with heart failure; E11.9 Type 2 diabetes mellitus without complications; M10.9 Gout, unspecified; E78.5 Hyperlipidemia, unspecified; G47.33 Obstructive sleep apnea (adult) (pediatric); K21.9 Gastro-esophageal reflux disease without esophagitis; E78.1 Pure hyperglyceridemia; G89.29 Other chronic pain; M54.9 Dorsalgia, unspecified; E66.01 Morbid (severe) obesity due to excess calories; I34.0 Nonrheumatic mitral (valve) insufficiency; Z79.01 Long term (current) use of anticoagulants; Z79.82 Long term (current) use of aspirin; Z79.84 Long term (current) use of oral hypoglycemic drugs; Z79.899 Other long term (current) drug therapy; Z85.528 Personal history of other malignant neoplasm of kidney; Z86.711 Personal history of pulmonary embolism; Z95.5 Presence of coronary angioplasty implant and graft
CPT/HCPCS: 10081; 10797

== ENCOUNTER → 2020-06-11 | Outpatient (CLI) | payer OTHER ==
[~2020-06-11] MED LIST changes: +ALPRAZOLAM 0.50.5 M1 PO; +BUPROPION XL300 MG PO; +EFFIENT10 MG PO; +EZETIMIBE10 MG PO; +GLYBURIDE 5 MG T5 M1 GT; +LIPITOR 40 MG T40 M1 PO; +LOSARTAN-HCTZ1 EAC3 PO; +METFORMIN HCL500 M3 PO; +METOPROLOL SUCC50 MG PO; +PREGABALIN225 MG PO; +SINGULAIR 10 MG10 M1 PO; +TESTOSTERO200 MG/1 M IM
== END ==
LOC: RAD 14:23
PROVIDERS: ATTEND Nurse Practitioner
DX: M25.552 Pain in left hip (principal)

== ENCOUNTER → 2020-10-23 | Outpatient (CLI) | payer OTHER | LOC: SJCVCIMAG 08:14 | PROVIDERS: ATTEND Internal Medicine Cardiovascular Disease | DX: I25.10 Atherosclerotic heart disease of native coronary artery without angina pectoris (principal); R07.9 Chest pain, unspecified; Z95.5 Presence of coronary angioplasty implant and graft ==

== ENCOUNTER 2020-11-27 17:52 | Emergency (ER) | payer OTHER ==
[~2020-11-27] VITALS: Ht 185.4 cm; Wt 141.1 kg
[2020-11-27] MEDS ORDERED: METHOCARBAMOL500 M2 PO (22:51)
[2020-11-27] MEDS ORDERED: MEDROLDOSEPACK PO (22:51)
[2020-11-27 23:00] VITALS: BP 127/83
--- NOTE | 2020-11-28 07:20 | EKG ---
[address] [place] [address] ELECTROCARDIOGRAM REPORT Name: LINUS RICE Room #: DEP SUSANNAH Diaz#: [id number] Admission: 11/27/20 Attend Phys: Discharge: 11/27/20 Date of : 65 Report #: [id number] [facility] ED Test Date: 2020-11-27 Test Time: 17:59:29 Pat Name: LINUS RICE Department: Room: Gender: M Dancing Instructor: GM : 1965 Requested By: Sherry Olivas Order Number: [id number] MD: Rasheed Villafana Measurements Intervals [place] Rate: 85 P: SD: QRS: 29 QRSD: 106 T: 42 QT: 375 QTc: 446 Interpretive Statements NSR Non specific ST-T changes Electronically Signed On 11-28-2020 7:20:25 CDT by Rasheed Villafana [email or web address] <ELECTRONICALLY SIGNED> By: Rasheed Villafana MD, [facility] 11/28/20719 1759 1759 Rasheed Villafana MD, FACC /EPI
== END 2020-11-27 23:00 | disposition home or self-care (01) ==
LOC: ER 17:52
DX: M54.12 Radiculopathy, cervical region (principal); I11.0 Hypertensive heart disease with heart failure; I50.30 Unspecified diastolic (congestive) heart failure; E78.5 Hyperlipidemia, unspecified; I25.10 Atherosclerotic heart disease of native coronary artery without angina pectoris; K21.9 Gastro-esophageal reflux disease without esophagitis; E11.9 Type 2 diabetes mellitus without complications; Z86.718 Personal history of other venous thrombosis and embolism; Z87.442 Personal history of urinary calculi; Z79.82 Long term (current) use of aspirin; Z79.84 Long term (current) use of oral hypoglycemic drugs; Z79.891 Long term (current) use of opiate analgesic; Z79.1 Long term (current) use of non-steroidal anti-inflammatories (NSAID); Z79.899 Other long term (current) drug therapy

== ENCOUNTER 2021-02-20 22:52 | Emergency (ER) | payer OTHER ==
[~2021-02-20] VITALS: Ht 185.4 cm; Wt 146.1 kg
[~2021-02-20 22:52] MED LIST changes: +MEDROLDOSEPACK PO; +METHOCARBAMOL500 M2 PO
[2021-02-20] MEDS ORDERED: PLAVIX 75 MG TA75 MG PO (23:18)
[2021-02-21 00:02] LABS: ABSOLUTE NEUTROPHILS 5.4 thou/uL (1.4-8.2); BASOPHILS 1.4 % (0.0-2.0); HEMATOCRIT 40.9 % (42.0-52.0); HEMOGLOBIN 13.8 gm/dL (14.0-18.0); LYMPHOCYTES 28.6 % (24.0-44.0); MCH 29.2 pg (26.0-34.0); MCHC 33.8 g/dL (28.0-37.0); MCV 86.4 fL (80.0-100.0); MONOCYTES 9.4 % (1.0-8.0); PLATELET COUNT 263 thou/uL (150-400); POLYS 58.6 % (36.0-66.0); RBC 4.74 mil/uL (4.50-6.00); RDW 14.7 % (10.5-14.5); WBC 9.3 thou/uL (4.0-11.0)
[2021-02-21 00:12] LABS: CALCIUM 8.9 mg/dL (8.5-10.1); CREATININE 1.3 mg/dL (0.7-1.3)
[2021-02-21 00:17] LABS: ALBUMIN 3.5 g/dL (3.4-5.0); TOTAL BILIRUBIN 0.2 mg/dL (0.2-1.0); TOTAL PROTEIN 7.1 g/dL (6.4-8.2)
[2021-02-21 05:02] VITALS: BP 146/99
--- NOTE | 2021-02-21 09:42 | EKG ---
[place] [address] [facility] [place] [address] ELECTROCARDIOGRAM REPORT Name: LINUS RICE Room #: REG SUSANNAH Diaz#: [id number] Admission: 02/20/21 Attend Phys: Discharge: Date of : 65 Report #: [id number] [facility] ED Test Date: 2021-02-20 Test Time: 23:36:19 Pat Name: LINUS RICE Department: Room: Gender: M Coating Supervisor: joe : 1965 Requested By: Freddie Yip Order Number: [id number] MD: Rasheed Villafana Measurements Intervals [place] Rate: 90 P: 54 HI: 178 QRS: 44 QRSD: 107 T: 39 QT: 367 QTc: 449 Interpretive Statements Sinus rhythm Baseline wander in lead(s) V3 Compared to ECG 11/27/2020 17:59:29 ST (T wave) deviation no longer present Electronically Signed On 02-21-2021 9:42:13 [employer] by Rasheed Villafana [email or web address] <ELECTRONICALLY SIGNED> By: Rasheed Villafana MD, [facility] 02/21/21 0942 2336 2336 Rasheed Villafana MD, FACC /EPI
== END 2021-02-21 05:02 | disposition home or self-care (01) ==
LOC: ER 22:52
PROVIDERS: Emergency Medicine
DX: U07.1 COVID-19 (principal); R06.02 Shortness of breath; E11.9 Type 2 diabetes mellitus without complications; M10.9 Gout, unspecified; E78.5 Hyperlipidemia, unspecified; I11.0 Hypertensive heart disease with heart failure; I50.30 Unspecified diastolic (congestive) heart failure; Z87.442 Personal history of urinary calculi; Z90.89 Acquired absence of other organs; Z86.718 Personal history of other venous thrombosis and embolism; Z85.89 Personal history of malignant neoplasm of other organs and systems; Z79.899 Other long term (current) drug therapy; Z79.891 Long term (current) use of opiate analgesic

== ENCOUNTER 2021-03-15 23:21 | Observation (INO) | payer OTHER ==
[~2021-03-15] VITALS: Ht 185.4 cm; Wt 147.7 kg
[~2021-03-15 23:21] MED LIST changes: +PLAVIX 75 MG TA75 MG PO
[2021-03-15 23:22] VITALS: BP 154/102
[2021-03-15 23:47] LABS: ABSOLUTE NEUTROPHILS 6.3 thou/uL (1.4-8.2); BASOPHILS 0.7 % (0.0-2.0); EOSINOPHILS 0.6 % (0.0-3.0); HEMATOCRIT 40.5 % (42.0-52.0); HEMOGLOBIN 13.5 gm/dL (14.0-18.0); LYMPHOCYTES 17.7 % (24.0-44.0); MCH 28.9 pg (26.0-34.0); MCHC 33.2 g/dL (28.0-37.0); MONOCYTES 7.1 % (1.0-8.0); PLATELET COUNT 253 thou/uL (150-400); POLYS 73.9 % (36.0-66.0); RBC 4.66 mil/uL (4.50-6.00); RDW 15.2 % (10.5-14.5); WBC 8.5 thou/uL (4.0-11.0)
[2021-03-15 23:50] LABS: CALCIUM 8.5 mg/dL (8.5-10.1); CREATININE 1.5 mg/dL (0.7-1.3); POTASSIUM 4.2 mmol/L (3.5-5.1)
[2021-03-16 04:44] VITALS: BP 146/87
[2021-03-16 05:13] VITALS: BP 155/88
[2021-03-16 06:11] VITALS: BP 162/86
--- NOTE | 2021-03-16 07:46 | NUR ---
ASSUME CARE 0600 FROM ED. PT STABLE. DENIES ANY CHEST PAIN. COMPLAINS OF MILD NECK AND BACK PAIN THAT RADIATES TO RIGHT ARM, BUT INDICATES THIS IS CHRONIC. ASSESSMENT CHARTED. GOOD TOLERANCE TO ACTIVITY. SR ON MONITOR. NO DISTRESS NOTED. PLAN IS FOR CARDIOLOGY TO FOLLOW WITH PT. WILL FOLLOW WITH CARDIOLGY POC
--- NOTE | 2021-03-16 08:33 | EKG ---
[address] [place] [address] ELECTROCARDIOGRAM REPORT Name: LINUS RICE Room #: 215-P ADM IN M.R.#: [id number] Admission: 03/16/21 Attend Phys: Gerald Ivory MD Discharge: Date of : 65 Report #: [id number] [facility] ED Test Date: 2021-03-15 Test Time: 23:23:27 Pat Name: LINUS RICE Department: Room: 215 P Gender: M Under Ground Miner: am : 1965 Requested By: Mirta Snyder Order Number: [id number] MD: Domingo Gibson Measurements Intervals [place] Rate: 88 P: 59 OR: 202 QRS: 27 QRSD: 112 T: 1 QT: 386 QTc: 467 Interpretive Statements Sinus rhythm Atrial premature complex Borderline prolonged OR interval Compared to ECG 02/20/2021 23:36:19 Atrial premature complex(es) now present Electronically Signed On 03-16-2021 8:33:33 PRODUCTION PROOFREADER by Domingo Gibson [email or web address] <ELECTRONICALLY SIGNED> By: Domingo Gibson MD, [facility] 03/16/21 0833 2323 22 Domingo Gibson MD, FACC /EPI
--- NOTE | 2021-03-16 08:33 | EKG ---
[place] [address] [facility] [place] [address] ELECTROCARDIOGRAM REPORT Name: LINUS RICE Room #: 215-P ADM IN M.R.#: [id number] Admission: 03/16/21 Attend Phys: Gerald Ivory MD Discharge: Date of : 65 Report #: [id number] [facility] ED Test Date: 2021-03-16 Test Time: 03:14:18 Pat Name: LINUS RICE Department: Room: 215 Gender: M Vice President: : 1965 Requested By: Mirta Snyder Order Number: [id number] MD: Domingo Gibson Measurements Intervals [place] Rate: 96 P: 41 CT: 187 QRS: 30 QRSD: 109 T: 16 QT: 373 QTc: 472 Interpretive Statements Sinus rhythm Normal tracing Compared to ECG 02/20/2021 23:36:19 No significant changes Electronically Signed On 03-16-2021 8:33:43 GROUND CREWMAN AIRCRAFT SUPPORT by Domingo Gibson [email or web address] <ELECTRONICALLY SIGNED> By: Domingo Gibson MD, [facility] 03/16/21 0833 0314 0314 Domingo Gibson MD, FACC /EPI
[2021-03-16 08:48] VITALS: BP 160/95
[2021-03-16 09:53] LABS: CHOLESTEROL 180 mg/dL (<200); HDL CHOLESTEROL 43 mg/dL (>40); LDL CHOLESTEROL 94 mg/dL (<100); TC:HDL 4.2 Ratio (Not establshd); TRIGLYCERIDE 218 mg/dL (<150); VLDL 44 mg/dL (<40)
--- NOTE | 2021-03-16 12:31 | NUR ---
PT ADMITTED RELATED TO NSTEMI. CM REVIEWED CHART AND SPOKE WITH CARE TEAM. CM MET WITH PT AT BEDSIDE THIS DAY. PT INDICATED HE LIVES IN A HOUSE WITH HIS GF AND HIS FATHER BLANK RICE . HE INDICATED THAT HIS DAD IS THE BEST CONTACT FOR HIM. PT INDICATED THERE IS 1 STEP TO ENTER HOME AND 14 STEPS TO BASEMENT. PT SEES PATTERNMAKER HAND FLACO ERICKSON. 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 PT INDICATED HE HAS A CPAP FOR HOME USE. PT INDICATED THAT HE PLANS TO RETURN HOME ONCE MEDICALLY STABLE. PT IS TO HAVE CARDIAC CATHETERIZATION. CM FOLLOWING SHOULD ANY DC NEEDS ARISE.
--- NOTE | 2021-03-16 16:45 | NUR ---
ASSUMED PATIENT CARE THIS AM. PATIENT WAS SCHEDULED TO HAVE A CATH TODAY. DUE TO SCHEDULING THE CATH WAS PUT OFF TILL TOMORROW AND PATIENT WILL BE NPO AFTER MIDNIGHT. PATIENT HAD A BM TODAY. PATIENT DENIED ANY PAIN OR ANY OTHER COMPALINTS. PATIENT HAD A BM TODAY.
[2021-03-16 17:39] VITALS: BP 163/80
[2021-03-16 20:04] VITALS: BP 151/86
[2021-03-17 03:28] VITALS: BP 143/94
--- NOTE | 2021-03-17 04:15 | NUR ---
Assumed pt care at 1900. Pt is alert and oriented. No sign of distress noted in pt. Pt is stable. Denies current pain. Pt is ambulatory. Assessment completed and documented. Scheduled meds administered to pt. Pt is NPO after midnight for heart cath. No acute event during the night. Continue to monitor. No further needs at this time
[2021-03-17 05:18] LABS: HEMATOCRIT 37.4 % (42.0-52.0); HEMOGLOBIN 12.6 gm/dL (14.0-18.0); MCH 29.1 pg (26.0-34.0); MCHC 33.6 g/dL (28.0-37.0); MCV 86.6 fL (80.0-100.0); RBC 4.32 mil/uL (4.50-6.00); WBC 7.2 thou/uL (4.0-11.0)
[2021-03-17 05:35] LABS: CALCIUM 7.5 mg/dL (8.5-10.1); CREATININE 1.2 mg/dL (0.7-1.3); POTASSIUM 3.8 mmol/L (3.5-5.1)
[2021-03-17 07:08] LABS: GLYCOHEMOGLOBIN (HGB A1C) 8.6 % (4.8-5.6)
[2021-03-17 10:54] VITALS: BP 143/94
[2021-03-17 14:17] VITALS: BP 143/94
--- NOTE | 2021-03-17 14:44 | 2DMMODE ---
[facility] [address] [place] [address] 2 D/M-MODE ECHOCARDIOGRAM Name: LINUS RICE Room #: 215-P ADM Renae MEdgarREdgar#: [id number] Admission: 03/16/21 Attend Phys: Kyra Gómez Discharge: Date of : 65 Report #: [id number] THIS REPORT FOR: cc: Rosaline Martin Beth RNP Lundgren, Craig H. MD [facility] ~ APPROVED REPORT Study performed: 03/17/2021 13:01:21 EXAM: Comprehensive 2D, Doppler, and color-flow Echocardiogram Patient Location: Bedside Room #: [facility] Status: routine BSA: 2.62 HR: 75 bpm BP: 143/94 mmHg Rhythm: NSR Other Information Study Quality: Technically Difficult Technically limited study due to body habitus, inability to position patient. Indications Diabetes Chest Pain Hypertension/HDD 2D Dimensions IVSd: 10.91 (7-11mm) LVOT Diam: 21.87 (18-24mm) LVDd: 58.69 mm PWd: 10.83 (7-11mm) Ascending Ao: 39.67 (22-36mm) LVDs: 42.51 (25-40mm) Left Atrium: 36.53 (27-40mm) Aortic Root: 31.39 mm Aortic Valve AoV Peak Delfin.: 1.26 m/s AO Peak Gr.: 6.33 mmHg LVOT Max P.14 mmHg LVOT Max V: 1.13 m/s DUONG Vmax: 3.38 cm2 Mitral Valve [facility] [employer] [address] [place] [address] 2 D/M-MODE ECHOCARDIOGRAM Name: LINUS RICE Room #: 215-P ADM IN M.R.#: [id number] Admission: 03/16/21 Attend Phys: Kyra Zamora Discharge: Date of : 65 Report #: [id number] E/A Ratio: 1.2 MV Decel. Time: 272.50 ms MV E Max Delfin.: 0.74 m/s MV A Delfin.: 0.62 m/s MV PHT: 79.02 ms IVRT: 96.89 ms Pulmonary Valve PV Peak Delfin.: 0.59 m/s PV Peak Gr.: 1.37 mmHg Pulmonary Vein P Vein S: 0.37 m/s P Vein A: 0.24 m/s P Vein D: 0.33 m/s P Vein A Dur.: 106.1 msec P Vein S/D Ratio: 1.12 Left Ventricle Left ventricle is mildly dilated. There is normal LV segmental wall motion. There is normal left ventricular wall thickness. The left ventricular systolic function is normal. The left ventricular ejection fraction is within the normal range. LVEF is 55-60%. Normal diastolic function. Right Ventricle The right ventricle is normal size. The right ventricular systolic function is normal. Atria The left atrium size is normal. The right atrium size is normal. Aortic Valve The aortic valve is normal in structure. No aortic regurgitation is present. There is no aortic valvular stenosis. Mitral Valve The mitral valve is normal in structure. There is no mitral valve regurgitation noted. No evidence of mitral valve stenosis. Tricuspid Valve The tricuspid valve is normal in structure. There is no tricuspid valve regurgitation noted. Pulmonic Valve The pulmonary valve is normal in structure. There is no pulmonic valvular regurgitation. [facility] [place] [address] 2 D/M-MODE ECHOCARDIOGRAM Name: LINUS RICE Room #: 215-P ADM IN M.R.#: [id number] Admission: 03/16/21 Attend Phys: Kyra Zamora Discharge: Date of : 65 Report #: [id number] Great Vessels The aortic root is normal in size. The inferior vena cava is not well visualized. Pericardium There is no pericardial effusion. <Conclusion> Technically difficult study The left ventricular systolic function is normal. There is normal LV segmental wall motion. LVEF is 55-60%. Normal diastolic function. The aortic valve is normal in structure. No aortic regurgitation or stenosis. The mitral valve is normal in structure. No mitral valve regurgitation. Pulmonary artery pressure could not be reliably ascertained There is no pericardial effusion. <ELECTRONICALLY SIGNED> By: Domingo Gibson MD, [facility] 03/17/21 1444 1444 144 Domingo Gibson MD, FACC /INF
--- NOTE | 2021-03-17 17:19 | NUR ---
PT IS AXOX4, PLEASANT; VSS, AFEBRILE, SR ON THE MONITOR. PT CARDIAC CATH THIS AM. NO INTERVENTIONS. R GROIN MYNX DRESSING C/D/I NO HEMATOMA. PT TO D/C THIS AFTERNOON. EDUCATION COMPLETED. PT D/C WITH S/O TO HOME. NO CONCERNS AT THIS TIME.
--- NOTE | 2021-03-18 17:29 | CATHLAB ---
[facility] [place] [address] INVASIVE PROCEDURE REPORT Name: LINUS RICE Room #: 215-P MEGAN Diaz#: [id number] Admission: 03/16/21 Attend Phys: Kyra Adis Dalia Discharge: 03/17/21 Date of : 65 Report #: [id number] THIS REPORT FOR: cc: Rosaline Martin Beth RNP Mancuso, Gerald M. MD [facility] ~ APPROVED REPORT Study performed: 03/17/2021 08:33:05 Patient Details Patient Status: In-Patient Room #: 215 The patient is a 55 year-old male Event Personnel Jose Yun Senior Field Service Engineer, Hermelinda Massey RTR Monitor, Juan Alcantara RTR Scrub, Destiny Munson RN industrial design intern Performed Art Access - R femoral artery* Left Heart Cath w/or w/o Coronaries [id number] [facility] Aortogram Abdominal Peripheral Angio 516575 Hemostasis w/ Mynx 37572 Initial Mod Sed Same Phys/QHP Gr5y 968170 27436 Mod Sed Same Phys/QHP Ea 936072 Procedure Narrative The Right Groin^ was infiltrated with 1% Lidocaine subcutaneous anesthesia. A PINNACLE 6FR Sheath #[id number] sheath was inserted into the RFA^. Coronary angiography was performed using coronary diagnostic catheters. The right coronary system was accessed and visualized with a JR4 catheter. The left coronary system was accessed and visualized with a JL4 catheter. The left ventricle was accessed and visualized with a PIGTAIL catheter. Left ventriculogram was performed in 30 degree projection. An aortogram of the abdominal aorta was performed. Closure device was deployed with a Fr MYNXGRIP 6/7F #[id number]. The patient tolerated the procedure well and there were no complications associated with the procedure. There was no hematoma. Intraoperative Conscious Sedation Sedation start time: 847 Case end Time: 921 Fentanyl 100 mcg Versed 3 mg Fluoro Time: 1.60 minutes Dose: DAP 7738.10 cGycm2 971 mGy [facility] [address] [place] [address] INVASIVE PROCEDURE REPORT Name: LINUS RICE Room #: 215-P [facility] IN M.R.#: [id number] Admission: 03/16/21 Attend Phys: Kyra Zamora Discharge: 03/17/21 Date of : 65 Report #: [id number] Contrast Type and Amount: Omnipaque 105 ml Hemodynamics The aortic pressure is 154/84 mmHg with a mean of 117 mmHg. The left ventricular pressure is 172/6 mmHg with a mean of mmHg. The left ventricular end diastolic pressure is 22 mmHg. Conclusion #1 Normal left ventricular size and systolic function EF 60%. #2 abdominal aortogram and intact abdominal aorta no aneurysm. Single bilateral renal arteries and iliac system appear to be widely patent. #3 left main is short and free of disease giving rise to LAD and circumflex. #4 the LAD extends around the apex there is mild calcification 3040% proximal lesion diffuse distal disease this extends around the apex somewhat of an attenuated vessel distally. Moderately diseased diagonal branch no occlusive disease for intervention. #5 there is a high rising OM branch which is mildly diseased moderate distribution. #6 the remainder of the circumflex artery is a dominant vessel in distribution without occlusive disease and relatively large in caliber. #7 small nondominant right coronary artery. Widely patent Recommendations and plan: Continue aggressive risk factor modification no indication for coronary intervention. <ELECTRONICALLY SIGNED> By: Jose Yun MD, FACC 03/18/211728 28 28 Jose Yun MD, FACC /INF
== END 2021-03-17 17:29 | disposition home or self-care (01) ==
LOC: ER 23:21 → 2N 03-16 03:32 → EROBS 03-16 03:32 → 2N 03-16 03:32
PROVIDERS: Emergency Medicine; Nurse Practitioner Family; ADMIT Hospitalist; ATTEND Hospitalist
DX: I25.10 Atherosclerotic heart disease of native coronary artery without angina pectoris (principal); I21.4 Non-ST elevation (NSTEMI) myocardial infarction; R79.89 Other specified abnormal findings of blood chemistry; Z20.822 Contact with and (suspected) exposure to COVID-19; I11.0 Hypertensive heart disease with heart failure; I50.30 Unspecified diastolic (congestive) heart failure; E11.9 Type 2 diabetes mellitus without complications; E78.5 Hyperlipidemia, unspecified; G47.33 Obstructive sleep apnea (adult) (pediatric); K21.9 Gastro-esophageal reflux disease without esophagitis; Z79.899 Other long term (current) drug therapy; Z79.02 Long term (current) use of antithrombotics/antiplatelets
CPT/HCPCS: 10081

== ENCOUNTER 2021-03-26 13:12 | Emergency (ER) | payer OTHER ==
[~2021-03-26] VITALS: Ht 185.4 cm; Wt 102.1 kg
[2021-03-26 14:01] LABS: ABSOLUTE NEUTROPHILS 5.9 thou/uL (1.4-8.2); BASOPHILS 0.7 % (0.0-2.0); EOSINOPHILS 1.8 % (0.0-3.0); HEMATOCRIT 41.4 % (42.0-52.0); HEMOGLOBIN 13.6 gm/dL (14.0-18.0); LYMPHOCYTES 23.1 % (24.0-44.0); MCH 28.2 pg (26.0-34.0); MCHC 32.7 g/dL (28.0-37.0); MCV 86.2 fL (80.0-100.0); MONOCYTES 7.4 % (1.0-8.0); PLATELET COUNT 275 thou/uL (150-400); RBC 4.81 mil/uL (4.50-6.00); RDW 14.9 % (10.5-14.5); WBC 8.8 thou/uL (4.0-11.0)
[2021-03-26 14:05] LABS: CALCIUM 9.1 mg/dL (8.5-10.1); CREATININE 1.1 mg/dL (0.7-1.3)
[2021-03-26 14:15] LABS: ALBUMIN 3.3 g/dL (3.4-5.0); TOTAL BILIRUBIN 0.5 mg/dL (0.2-1.0); TOTAL PROTEIN 7.1 g/dL (6.4-8.2)
[2021-03-26 14:18] LABS: POTASSIUM 4.8 mmol/L (3.5-5.1)
[2021-03-26] MEDS ORDERED: FLEXERIL PO (16:51)
[2021-03-26] MEDS ORDERED: NAPROSYN500 MG PO (16:51)
[2021-03-26] MEDS ORDERED: PREDNISONE 20 M20 MG PO (16:51)
[2021-03-26 17:13] VITALS: BP 125/50
--- NOTE | 2021-03-27 07:32 | EKG ---
[place] [address] [facility] [place] [address] ELECTROCARDIOGRAM REPORT Name: LINUS RICE Room #: REG SUSANNAH MEdgarREdgar#: [id number] Admission: 03/26/21 Attend Phys: Discharge: Date of : 65 Report #: [id number] [facility] ED Test Date: 2021-03-26 Test Time: 13:17:27 Pat Name: LINUS RICE Department: Room: Gender: M Lead Medical Technologist: [id number] : 1965 Requested By: Freddie Yip Order Number: [id number] MD: Rasheed Villafana Measurements Intervals [place] Rate: 84 P: 9 MD: 158 QRS: 5 QRSD: 100 T: 89 QT: 381 QTc: 451 Interpretive Statements Sinus rhythm Nonspecific T abnormalities, lateral leads Compared to ECG 03/16/2021 03:14:18 T-wave abnormality now present Electronically Signed On 03-27-2021 7:32:22 BI REPORT DEVELOPER by Rasheed Villafana [email or web address] <ELECTRONICALLY SIGNED> By: Rasheed Villafana MD, [facility] 03/27/21 0732 1317 1317 Rasheed Villafana MD, FACC /EPI
== END 2021-03-26 17:20 | disposition home or self-care (01) ==
LOC: ER 13:12
PROVIDERS: Emergency Medicine
DX: M54.12 Radiculopathy, cervical region (principal); R07.89 Other chest pain; M54.2 Cervicalgia; M25.511 Pain in right shoulder; I10 Essential (primary) hypertension; K21.9 Gastro-esophageal reflux disease without esophagitis; E78.5 Hyperlipidemia, unspecified; M10.9 Gout, unspecified; Z87.442 Personal history of urinary calculi; Z79.899 Other long term (current) drug therapy; Z95.5 Presence of coronary angioplasty implant and graft